=== PATIENT | male | born 1930 | race Caucasian/White ===

== ENCOUNTER → 2017-05-28 | Outpatient (CLI) | payer OTHER ==
[~2017-05-28] MED LIST: ADULT ASPIRIN R81 MG PO; ALLO300 PO; ASCO500 PO; ASPI325; ASPI325 PO; ATEN25; ATOR10; ATOR10 PO; CALCA500CH PO; CALCIT950 PO; CALMAGZIN PO; CHOL10002 PO; CYAN1000 PO; CYAN500 PO; Calcium + Vita1 EACH PO; EXELON TOP; EXELON1 EACH TD; FISH1000 PO; FLAX PO; FOLI400 PO; LEVSOD50 PO; LISHYD1012; LISI20 PO; MAGOXI400 PO; MEMA10 PO; MULVITMIND PO; MULVITMINF PO; NITR.4SL; NITR.4SL SL; NITR.6SL SL; NITROSTAT 0.4 MG SL; Nitrostat0.4 MG SL; OMEG1CAP30 PO; OMEP20ER PO; POTASSIUM; PRAV20 PO; RIVASTIGMINE 4.6 MG/24 HR TOP; TAMS.4ER PO; TOCO1000 PO; TOCO400 PO
== END ==
LOC: PLD 07:10
DX: C67.2 Malignant neoplasm of lateral wall of bladder (principal); R31.0 Gross hematuria
CPT/HCPCS: 88108

== ENCOUNTER 2017-05-30 02:52 | Day surgery (SDC) | payer OTHER ==
[~2017-05-30] VITALS: Ht 177.8 cm; Wt 79.5 kg
[~2017-05-30 02:52] MED LIST changes: -MAGOXI400 PO
[2017-05-30] MEDS ORDERED: MAGOXI400 PO (06:49)
== END 2017-05-30 22:48 | disposition home or self-care (01) ==
LOC: MHTC 02:52
DX: I45.2 Bifascicular block (principal); R55 Syncope and collapse; I25.2 Old myocardial infarction; F03.90 Unspecified dementia, unspecified severity, without behavioral disturbance, psychotic disturbance, mood disturbance, and anxiety; E03.9 Hypothyroidism, unspecified; E78.5 Hyperlipidemia, unspecified; I10 Essential (primary) hypertension; Z95.5 Presence of coronary angioplasty implant and graft; Z79.82 Long term (current) use of aspirin; Z79.899 Other long term (current) drug therapy; Z88.8 Allergy status to other drugs, medicaments and biological substances; Z85.51 Personal history of malignant neoplasm of bladder
CPT/HCPCS: 33208; 71046; 93005; 93010; 93620; 99152; 99153; C1730; C1769; C1785; C1894; C1898; J0690; J1200; J1644; J2250; J2405; J3010; J7030; J7040; Q9967

== ENCOUNTER 2018-12-20 22:07 | Emergency (ER) | payer OTHER ==
[~2018-12-20] VITALS: Ht 177.8 cm; Wt 79.4 kg
[~2018-12-20 22:07] MED LIST changes: +MAGOXI400 PO
== END 2018-12-20 23:20 | disposition home or self-care (01) ==
LOC: ER 22:07
DX: S61.411A Laceration without foreign body of right hand, initial encounter (principal); S50.311A Abrasion of right elbow, initial encounter; S80.211A Abrasion, right knee, initial encounter; I10 Essential (primary) hypertension; I25.2 Old myocardial infarction; K21.9 Gastro-esophageal reflux disease without esophagitis; M10.9 Gout, unspecified; G30.9 Alzheimer's disease, unspecified; Z95.2 Presence of prosthetic heart valve; W01.0XXA Fall on same level from slipping, tripping and stumbling without subsequent striking against object, initial encounter
CPT/HCPCS: 90471; 90714; 99282-25

== ENCOUNTER 2019-07-14 09:27 | Emergency (ER) | payer OTHER ==
[~2019-07-14] VITALS: Ht 175.3 cm; Wt 81.7 kg
[2019-07-14] MEDS ORDERED: FINA5 PO (10:03)
[2019-07-14] MEDS ORDERED: IRBE150 PO (10:04)
[2019-07-14] MEDS ORDERED: METO25ER PO (10:05)
[2019-07-14 10:33] LABS: BASOPHILS ABSOLUTE AUTO 0.05 K/mm3 (0.00-0.23); BASOPHILS PERCENT AUTO 1 % (0-2); EOSINOPHILS ABSOLUTE AUTO 0.37 K/mm3 (0.00-0.68); EOSINOPHILS PERCENT AUTO 5 % (0-6); Hematocrit 41.6 % (37.0-53.0); Hemoglobin 13.7 g/dL (13.5-17.5); IMMATURE GRAN ABSOLUTE AUTO 0.02 K/mm3 (0.00-0.10); IMMATURE GRAN PERCENT AUTO 0 % (0-1); LYMPHOCYTES ABSOLUTE AUTO 2.49 K/mm3 (0.84-5.20); LYMPHOCYTES PERCENT AUTO 35 % (21-46); MONOCYTES ABSOLUTE AUTO 0.58 K/mm3 (0.16-1.47); MONOCYTES PERCENT AUTO 8 % (4-13); Mean Corpuscular HGB 31.6 pg (26.0-34.0); Mean Corpuscular HGB Conc 32.9 g/dL (31.5-36.5); Mean Corpuscular Volume 96 fL (80-100); Mean Platelet Volume 11.5 fL (9.1-12.4); NEUTROPHILS ABSOLUTE AUTO 3.56 K/mm3 (1.96-9.15); NEUTROPHILS PERCENT AUTO 50 % (41-73); Platelet Count 214 K/mm3 (150-400); RDW Coefficient Variation 14.5 % (11.7-14.2); RDW Standard Deviation 51.5 fL (35.1-46.3); Red Blood Cell Count 4.33 M/mm3 (4.30-5.90); White Blood Cell Count 7.07 K/mm3 (4.00-11.30)
[2019-07-14 10:48] LABS: Alanine Aminotransfer (ALT/SGP 19 U/L (12-78); Albumin, Blood 3.6 g/dL (3.4-5.0); Albumin/Globulin Ratio 1.1 (0.8-1.8); Alk Phos 90 U/L (50-136); Anion Gap 4 mmol/L (6-16); Aspartate Aminotrans (AST/SGOT 25 U/L (12-37); Bilirubin, Total 0.9 mg/dL (0.1-1.0); Blood Urea Nitrogen 17 mg/dL (8-24); Bun/Creatinine Ratio 17.9 (12.0-20.0); CO2, Blood 27 mmol/L (21-32); Calcium, Blood 8.7 mg/dL (8.5-10.1); Chloride, Blood 107 mmol/L (98-108); Creatinine, Blood 0.95 mg/dL (0.60-1.20); Globulin, Blood 3.3 g/dL (2.2-4.0); Glomerular Filtration Rate >60 (60-); Glucose, Blood 122 mg/dL (70-99); Potassium, Blood 3.9 mmol/L (3.5-5.5); Sodium, Blood 138 mmol/L (136-145); Total Protein, Blood 6.9 g/dL (6.4-8.2); Troponin I <0.015 ng/mL (0.000-0.040)
== END 2019-07-14 12:20 | disposition home or self-care (01) ==
LOC: ER 09:27
PROVIDERS: Emergency Medicine
DX: R55 Syncope and collapse (principal); I10 Essential (primary) hypertension; K21.9 Gastro-esophageal reflux disease without esophagitis; I25.2 Old myocardial infarction; M10.9 Gout, unspecified
CPT/HCPCS: 36415; 80053; 82947; 84484; 85025; 93005; 93010; 99285-25